=== PATIENT | male | born 1995 | race African-American/Black ===

== ENCOUNTER 2017-04-04 14:59 | Emergency (ER) | payer MEDICAID ==
[~2017-04-04] VITALS: Ht 182.9 cm; Wt 95.0 kg
[2017-04-04 20:40] VITALS: BP 135/73
== END 2017-04-04 21:37 | disposition home or self-care (01) ==
LOC: ER 15:20
DX: L03.116 Cellulitis of left lower limb (principal); L02.416 Cutaneous abscess of left lower limb; F17.210 Nicotine dependence, cigarettes, uncomplicated; F12.10 Cannabis abuse, uncomplicated
CPT/HCPCS: 99283

== ENCOUNTER 2021-04-17 18:04 | Emergency (ER) | payer MEDICAID, OTHER ==
[~2021-04-17] VITALS: Ht 175.3 cm; Wt 80.0 kg
[2021-04-17] MEDS ORDERED: MORPHINE SULFATE 10 MG/ML CPJ IM ONE (18:15)
[2021-04-17] MEDS ORDERED: FENTANYL CITRATE/PF 50MCG/ML 2ML VIAL IV ONE ×3 (18:15→20:15)
[2021-04-17] MEDS ORDERED: LIDOCAINE HCL 1% 20ML VIAL (Pyxis) INJ INFIL ONE (18:45)
[2021-04-17] MEDS ORDERED: LORAZEPAM 2MG/ML CPJ IV ONE ×2 (19:00→21:30)
[2021-04-18] MEDS ORDERED: HYDROMORPHONE HCL/PF 2MG/ML CPJ IV ONE ×3 (00:15→09:00)
[2021-04-18] MEDS ORDERED: CEFAZOLIN 1000MG PREMIX 50 ML IV ONE (05:45)
[2021-04-18 10:10] VITALS: BP 120/80
== END 2021-04-18 10:16 | disposition short-term general hospital (02) ==
LOC: ER 18:04
DX: S66.115A Strain of flexor muscle, fascia and tendon of left ring finger at wrist and hand level, initial encounter (principal); Z20.822 Contact with and (suspected) exposure to COVID-19; Y04.0XXA Assault by unarmed brawl or fight, initial encounter; Y93.89 Activity, other specified; Y92.89 Other specified places as the place of occurrence of the external cause; Y99.8 Other external cause status
CPT/HCPCS: 73120; 82962; 87426; 96365; 96372; 96375; 96376; 99285; J0690; J1170; J2060; J2270; J3010; J3490; 71045

== ENCOUNTER 2021-10-12 12:25 | Emergency (ER) | payer MEDICAID, OTHER ==
[~2021-10-12] VITALS: Ht 182.9 cm; Wt 100.0 kg
[2021-10-12] MEDS ORDERED: ONDANSETRON HCL 4MG/2ML INJ IV STA (12:35)
[2021-10-12] MEDS ORDERED: MORPHINE SULFATE 4 MG/ML CPJ (NOT FOR IM USE) IV ONE (12:45)
[2021-10-12] MEDS ORDERED: SODIUM CHLORIDE 0.9% 1,000 ML IV ONE (12:45)
[2021-10-12 13:03] LABS: CLARITY URINE CLEAR (CLEAR); COLOR URINE DARK YELLOW (YELLOW); KETONES URINE 1+ (NEGATIVE); LEUKOCYTE ESTERASE URINE NEGATIVE (NEGATIVE); NITRITE URINE NEGATIVE (NEGATIVE); OCCULT BLOOD URINE NEGATIVE (NEGATIVE); PH URINE 5.5 (4.5-8.0); PROTEIN URINE TRACE (NEGATIVE); SPECIFIC GRAVITY URINE 1.028 (1.005-1.030); UROBILINOGEN URINE 0.2 E.U./dL (0.2-1.0)
[2021-10-12 13:04] LABS: BASOPHILS % 0.1 % (0.0-2.0); HEMATOCRIT. 42.3 % (42.0-52.0); HEMOGLOBIN. 14.7 g/dL (14.0-18.0); LYMPHOCYTES % 8.4 % (20.0-50.0); MEAN CORPUSCULAR HEMOGLOBIN 29.5 pg (28.0-32.0); MEAN CORPUSCULAR VOLUME 84.6 fL (80.0-94.0); MONOCYTES % 8.7 % (2.0-8.0); NEUTROPHILS % 82.8 % (40.0-76.0); PLATELET 256 x1000/uL (130-400); RED CELL DISTRIBUTION WIDTH 13.7 % (11.6-14.6)
[2021-10-12 13:16] LABS: CHLORIDE 104 mEq/L (98-107)
[2021-10-12] MEDS ORDERED: ONDA4TAB5 MT (15:07)
[2021-10-12] MEDS ORDERED: IBUP-2029 MT (15:07)
[2021-10-12] MEDS ORDERED: AMOX-424 MT (15:07)
[2021-10-12] MEDS ORDERED: KETOROLAC 15MG/ML VIAL IV ONE (15:15)
[2021-10-12] MEDS ORDERED: AMOXICILLIN/POTASSIUM CLAVULANATE 875/125MG TAB PO ONE (15:15)
[2021-10-12 15:42] VITALS: BP 128/72
[2021-10-12] MEDS ORDERED: IOHEXOL-300 100 ML BOTTLE ONE (16:27)
== END 2021-10-12 16:33 | disposition home or self-care (01) ==
LOC: ER 12:25
DX: K52.9 Noninfective gastroenteritis and colitis, unspecified (principal); E87.6 Hypokalemia; F12.10 Cannabis abuse, uncomplicated
CPT/HCPCS: 36415; 74177; 80053; 81003; 83690; 85025; 96361; 96374; 96375; 99285; J1885; J2270; J2405; J7030; Q9967

== ENCOUNTER 2021-10-13 21:19 | Emergency (ER) | payer OTHER ==
[~2021-10-13] VITALS: Ht 182.9 cm; Wt 102.0 kg
[~2021-10-13 21:19] MED LIST: AMOX-424 MT; IBUP-2029 MT; ONDA4TAB5 MT
[2021-10-13] MEDS ORDERED: IBUPROFEN 600MG TABLET PO STA (23:27)
[2021-10-13] MEDS ORDERED: MAGNESIUM/ALUMINUM HYDROXIDE/SIMETHICONE 30ML UDC PO STA (23:27)
[2021-10-13 23:48] LABS: HEMATOCRIT. 41.4 % (42.0-52.0); HEMOGLOBIN. 14.3 g/dL (14.0-18.0); MEAN CORPUSCULAR VOLUME 84.1 fL (80.0-94.0); MEAN PLATELET VOLUME 6.9 fl (7.4-10.4); PLATELET 255 x1000/uL (130-400); RED BLOOD CELL COUNT 4.92 mill/uL (4.7-6.1); RED CELL DISTRIBUTION WIDTH 13.6 % (11.6-14.6)
[2021-10-13 23:55] LABS: CHLORIDE 107 mEq/L (98-107)
[2021-10-14 00:47] LABS: NUCLEATED RED BLOOD CELLS 492 /100 WBC; PLATELET ESTIMATE NORMAL
[2021-10-14 02:00] VITALS: BP 130/78
== END 2021-10-14 02:00 | disposition home or self-care (01) ==
LOC: ER 21:19
DX: K52.9 Noninfective gastroenteritis and colitis, unspecified (principal)
CPT/HCPCS: 36415; 74176; 80053; 85025; 99284

== ENCOUNTER 2021-12-02 17:38 | Emergency (ER) | payer OTHER ==
[~2021-12-02] VITALS: Ht 182.9 cm; Wt 96.0 kg
[2021-12-02 17:40] VITALS: BP 116/80
[2021-12-02] MEDS ORDERED: TRAM50TA3 MT (19:23)
[2021-12-02] MEDS ORDERED: IBUP-2030 MT (19:23)
== END 2021-12-02 19:52 | disposition home or self-care (01) ==
LOC: ER 17:38
DX: S56.812A Strain of other muscles, fascia and tendons at forearm level, left arm, initial encounter (principal); V49.49XA Driver injured in collision with other motor vehicles in traffic accident, initial encounter; Y93.89 Activity, other specified; Y92.488 Other paved roadways as the place of occurrence of the external cause
CPT/HCPCS: 73110; 73130; 99284

== ENCOUNTER 2022-05-08 09:40 | Emergency (ER) | payer MEDICAID, OTHER ==
[~2022-05-08] VITALS: Ht 177.8 cm; Wt 98.0 kg
[~2022-05-08 09:40] MED LIST changes: +IBUP-2030 MT; +TRAM50TA3 MT
[2022-05-08] MEDS ORDERED: IBUPROFEN 600MG TABLET PO STA (10:31)
[2022-05-08] MEDS ORDERED: SODIUM CHLORIDE 0.9% 1,000 ML IV ONE (10:45)
[2022-05-08 10:49] LABS: BASOPHILS % 0.5 % (0.0-2.0); EOSINOPHILS % 0.7 % (0.0-5.0); HEMATOCRIT. 44.3 % (42.0-52.0); HEMOGLOBIN. 15.2 g/dL (14.0-18.0); LYMPHOCYTES % 41.4 % (20.0-50.0); MEAN CORPUSCULAR HEMOGLOBIN 29.1 pg (28.0-32.0); MEAN CORPUSCULAR VOLUME 84.9 fL (80.0-94.0); MEAN PLATELET VOLUME 7.6 fl (7.4-10.4); MONOCYTES % 10.2 % (2.0-8.0); NEUTROPHILS % 47.2 % (40.0-76.0); PLATELET 301 x1000/uL (130-400); RED BLOOD CELL COUNT 5.22 mill/uL (4.7-6.1); RED CELL DISTRIBUTION WIDTH 13.7 % (11.6-14.6)
[2022-05-08 10:58] LABS: CHLORIDE 103 mEq/L (98-107)
[2022-05-08 11:09] LABS: ETHANOL BLOOD < 10 mg/dL
[2022-05-08 12:45] LABS: *AMPHETAMINES SCREEN URINE NEGATIVE (NEGATIVE); *BARBITURATES SCREEN URINE NEGATIVE (NEGATIVE); *BENZODIAZEPINES SCREEN URINE NEGATIVE (NEGATIVE); *COCAINE SCREEN URINE NEGATIVE (NEGATIVE); CANNABINOID URINE SCREEN PRESUMTIVE POSITIVE (NEGATIVE); METHADONE URINE SCREEN NEGATIVE (NEGATIVE); OPIATES URINE SCREEN NEGATIVE (NEGATIVE); PHENCYCLIDINE URINE SCREEN NEGATIVE (NEGATIVE)
[2022-05-08] MEDS ORDERED: IBUP-2029 MT (13:03)
[2022-05-08] MEDS ORDERED: KETOROLAC 15MG/ML VIAL IV ONE (13:45)
[2022-05-08 13:59] VITALS: BP 105/63
== END 2022-05-08 14:36 | disposition home or self-care (01) ==
LOC: ER 10:27
DX: R07.89 Other chest pain (principal); Z79.899 Other long term (current) drug therapy
CPT/HCPCS: 36415; 71045; 80053; 80305; 80320; 84484; 85025; 93005; 96361; 96374; 99285; J1885; J7030; G0480

== ENCOUNTER 2024-08-22 12:28 | Emergency (ER) | payer MEDICAID, OTHER ==
[~2024-08-22] VITALS: Ht 185.4 cm; Wt 104.0 kg
[2024-08-22 12:37] VITALS: O2SAT 99
[2024-08-22 12:55] VITALS: BP 122/67; PULSE 50; RESP 16; TEMP 37.2; O2SAT 100
== END 2024-08-22 15:15 | disposition left against medical advice (07) ==
LOC: ER 12:28
DX: Z53.21 Procedure and treatment not carried out due to patient leaving prior to being seen by health care provider (principal)